=== PATIENT | female | born 1990 | race Caucasian/White ===

== ENCOUNTER → 2016-08-23 | Outpatient (CLI) | payer MEDICAID ==
[~2016-08-23] MED LIST: AMOXICILLIN500 M2 PO; AMOXICOT500 M1 PO; BACTRIM DS 8001 TA1 PO; CELEXA40 M1 PO; CEPHALEXIN500 MG PO; INDERAL40 MG PO; MACROBID 100MG100 MG PO; MOTRIN 400MG.400 MG PO; NOMEDS XX; OXAZEPAM 10MG C10 MG PO; PERCOCET 5/3251 EACH PO; PHENERGAN 25MG.25 M1 PO; PROMETHAZINE HC25 M1 PO; TOPAMAX100 MG PO; Tramadol HCl50 MG PO; ULTRACET 325 MG1 TAB PO; ZITHROMAX Z PA250 MG PO
== END ==
LOC: LAB 17:00
DX: N39.0 Urinary tract infection, site not specified (principal)

== ENCOUNTER → 2016-12-13 | Outpatient (CLI) | payer MEDICAID ==
[2016-12-18 03:35] LABS: Neisseria gonorrhoeae, NAA Negative (Negative)
== END ==
LOC: LAB 17:52
PROVIDERS: Nurse Practitioner Obstetrics & Gynecology
DX: Z72.51 High risk heterosexual behavior (principal)